=== PATIENT | female | born 1935 | race Caucasian/White ===

== ENCOUNTER 2016-05-09 16:51 | Inpatient (IN) | payer OTHER ==
--- NOTE | ~2016-05-09 | EGD ---
EGD REPORT [facility] [address] [address] NAME: YOAN COX : 37 STATUS : ADM IN PAT#: [id number] AGE: 81 ADM/REG DATE : 05/09/16 MR#: [id number] REPORT SERV DATE: 05/11/16 DICTATED BY: QUINN MILLS DATE: 05/11/16 REPORT STATUS : Draft [facility]ANSCRIBED BY: [facility] DATE: 05/11/16 Endoscopy Center Patient Name: Yoan Cox Date of : 1935 Attending MD: QUINN MILLS MD Procedure Date No Time: 05/11/2016 Procedure: Upper GI endoscopy Indications: Iron deficiency anemia secondary to chronic blood loss, Melena Referring MD: SEAN ACOSTA MD Medicines: Monitored Anesthesia Care Complications: No immediate complications. Estimated blood loss: Minimal. Procedure: Pre-Anesthesia Assessment: - ASA Grade Assessment: III - A patient with severe systemic disease. After obtaining informed consent, the endoscope was passed under direct vision. Throughout the procedure, the patient's blood pressure, pulse, and oxygen saturations were monitored continuously. The GIF [id number] was introduced through the mouth, and advanced to the third part of duodenum. The upper GI endoscopy was accomplished without difficulty. The patient tolerated the procedure well. Findings: The examined esophagus was normal. A single medium-sized angioectasia with no bleeding was found in the gastric antrum. Fulguration to ablate the lesion to prevent bleeding by argon plasma at 1 liter/minute and 30 winkler was successful. Estimated blood loss was minimal. The examined duodenum was normal. The cardia and gastric fundus were normal on retroflexion. The exam was otherwise without abnormality. Impression: - A single non-bleeding angioectasia in the stomach. Treated by fulguration. - The examination was otherwise normal. Recommendation: - Return patient to hospital ceja for ongoing care. - Use Protonix (pantoprazole) 40 mg PO BID for 4 weeks. - Clear liquid diet today. - Colonoscopy tomorrow - Check hemoglobin q 12 hours until stable. EGD REPORT [facility] [address] [facility] [place]. [address] NAME: YOAN COX : [birth year] STATUS : ADM IN [facility]#: [id number] AGE: 81 ADM/REG DATE : 05/09/16 MR#: [id number] REPORT SERV DATE: 05/11/16 DICTATED BY: QUINN MILLS DATE: 05/11/16 REPORT STATUS : Draft TRANSCRIBED BY: [employer] DATE: 05/11/16 Procedure Code(s): --- Professional --- 40076, Esophagogastroduodenoscopy, flexible, transoral; with control of bleeding, any method Diagnosis Code(s): --- Professional --- K31.819, Angiodysplasia of stomach and duodenum without bleeding D50.0, Iron deficiency anemia secondary to blood loss (chronic) K92.1, Melena CPT copyright 2013 [employer]. All rights reserved. The codes documented in this report are preliminary and upon computer language coder review may be revised to meet current compliance requirements. Quinn Mills MD QUINN MILLS MD 05/11/2016 8:07 AM This report has been signed electronically. Number of Addenda: 0 Note Initiated On: 05/11/2016 7:18 AM Scope Withdrawal Time 0 hours 0 minutes 0 seconds [address] [place] [address]
--- NOTE | ~2016-05-09 | CN ---
Consultation Report [facility] [address] [place] [place]. [address] NAME: YOAN COX : 37 STATUS : ADM IN PAT#: [id number] AGE: 81 ADM/REG DATE : 05/09/16 MR#: [id number] REPORT SERV DATE: 05/10/16 DICTATED BY: YOLI JIMENEZ DATE: 05/10/16 REPORT STATUS : Draft TRANSCRIBED BY: MODL DATE: 05/10/16 GI CONSULTATION DATE OF CONSULTATION: 05/10/2016 REASON FOR CONSULTATION: Evaluation and management of GI bleeding. HISTORY OF PRESENT ILLNESS: Ms. Cox is an 81-year-old female patient, who has been seen by Dr. Augustin in the past, who presented to on 05/09 with a chief complaint of weakness and low hemoglobin found at her primary care physician's office. She states that she has been not feeling well really since 11/2015 when she was having issues with orthostatic hypotension and was placed on midodrine. She states that in 01/2016, she was diagnosed with paroxysmal atrial fibrillation and was placed on Eliquis. Since that time, she tells me that she has been seeing black stools typically one to two per day. She has continued to have issues with lightheadedness and weakness upon standing. She went to see her primary care physician, Dr. Garcia, yesterday, who sent her for lab work. Her hemoglobin came back at 5.9, thus she was subsequently sent to for further evaluation. It should be noted that she had a hemoglobin on 01/18/2016 of 12.2. She came in and had a CT scan with contrast showing large retained fecal material in the right side of the colon through the level of the splenic flexure, equaling fecal stasis, as well as a small hiatal hernia. She has presently received two units of packed red blood cells. Her last hemoglobin check was at 6.8. She is due for a repeat within the next hour. She has been started on a Protonix drip. Her last EGD and colonoscopy was with Dr. Augustin on 07/29/2013. On the colonoscopy, she had internal hemorrhoids and the sigmoid colon polyps. EGD showed a mild Schatzki ring, which he dilated; GE junction with erythema and a hiatal hernia; normal duodenum and second part of the duodenum; he did take biopsies of the GE junction, which were benign. She states that she has not had a bowel movement since 05/07. I have discussed with her CT scan findings as well as plans for EGD on 05/11. Her last dose of Eliquis was on 05/09. We will need to allow 48 hours for the Eliquis to clear her system, and then we will pursue EGD in the morning. I did discuss the risks, benefits, alternatives, and complications with her to include, but not limited to risk of bleeding, perforation, infection, reaction to medication, as well as cardiac and pulmonary side effects. She gives permission to proceed. PAST MEDICAL HISTORY: Positive for hiatal hernia; colon polyps; internal hemorrhoids; Schatzki ring with dilation in the past; gastritis; coronary artery disease, status post CABG, pacer/AICD placement; diabetes type 2; orthostatic hypotension, on a regimen of midodrine; left bundle-branch block; hypertension in the past; carotid disease; atrial flutter/fibrillation; systolic CHF with her last calculated ejection fraction 35%; hypothyroidism after thyroidectomy; primary hyperparathyroidism with parathyroid adenoma, status post surgical resection. PAST SURGICAL HISTORY: CABG, pacer, thyroidectomy for goiter, parathyroid adenoma removal, hysterectomy, appendectomy, mucinous ovarian tumor removal. Consultation Report [address] [address] NAME: YOAN COX : 37 STATUS : ADM IN [facility]#: [id number] AGE: 81 ADM/REG DATE : 05/09/16 MR#: [id number] REPORT SERV DATE: 05/10/16 DICTATED BY: YOLI JIMENEZ DATE: 05/10/16 REPORT STATUS : Draft TRANSCRIBED BY: [employer] DATE: 05/10/16 SOCIAL HISTORY: Past tobacco. No alcohol. . Lives independently with her . She has three children, who live locally. She denies any illicit drugs. FAMILY HISTORY: Positive for pancreatic cancer in her mother. Father positive for stomach cancer. ALLERGIES: SHELLFISH, CODEINE, COREG, LORA INHIBITORS. HOME MEDICATIONS: Amiodarone, Eliquis, Refresh, aspirin, vitamin D3, levothyroxine, midodrine, nitroglycerin, and Zocor. REVIEW OF SYSTEMS: A 10-point review of systems has been obtained with pertinent positives being addressed in the history of present illness. PERTINENT LABORATORY DATA: Sodium is 139, potassium is 4.5, BUN is 12, creatinine is 1.54. White count 8.3, hemoglobin presently 6.8 with hematocrit of 22.3, platelet count 237. INR of 1.8. PHYSICAL EXAMINATION: VITAL SIGNS: Temperature 97.6, pulse 64, respirations 18, and blood pressure is 166/73. NEURO: Reveals an alert female, resting in bed, who is awake and oriented x3. No obvious focal deficits. GENERAL: She is cooperative. She is pleasant. No apparent distress is noted. HEAD, EARS, EYES, NOSE, AND THROAT: Anicteric. Pupils equal, round, reactive to light and accommodation. Normocephalic and atraumatic. Noted pallor of the sclerae. NECK: No JVD. No palpable nodes. LUNGS: Decreased throughout with normal respiratory effort exhibited. Equal expansion. CARDIOVASCULAR SYSTEM: Regular rate and rhythm. ABDOMEN: Soft and nontender with active bowel sounds. No organomegaly appreciated. Nondistended. No rebound or guarding elicited on exam. EXTREMITIES: No edema. Normal distal pulses. She has some bilateral upper extremity ecchymosis and bruising. SKIN: Warm, dry, and intact. PSYCHIATRIC: Normal mood. Normal affect. ASSESSMENT: 1. GI bleed with melena. She states that she has been seeing black stools since 01/2016 after initiation of Eliquis. Differential diagnosis includes peptic ulcer disease, gastritis, esophagitis, duodenitis, or neoplasm. 2. Acute blood loss anemia, undergoing transfusion. 3. Paroxysmal atrial fibrillation, Eliquis initiation in 01/2016, last dose was 05/09/2016 at 7 a.m. 4. Orthostatic hypotension, on a regimen of midodrine. Consultation Report [address] [place]. [address] NAME: YOAN COX : 37 STATUS : ADM IN [facility]#: [id number] AGE: 81 ADM/REG DATE : 05/09/16 MR#: [id number] REPORT SERV DATE: 05/10/16 DICTATED BY: YOLI JIMENEZ DATE: 05/10/16 REPORT STATUS : Draft TRANSCRIBED BY: MODL DATE: 05/10/16 5. Chronic systolic congestive heart failure, last ejection fraction of 35%. 6. Fecal stasis. PLAN: 1. Clear liquid diet and n.p.o. after midnight. 2. Allow 48 hours for Eliquis to clear the system, we will plan for EGD on 05/[address] Dunn. 3. Continue Protonix drip. 4. Follow H and H, transfuse as needed. 5. Check a TSH and begin MiraLax p.o. b.i.d. for constipation. We will follow. ANGELINE/TOMASZ Startex JAMES Negrete / [id number] CC: MD Toribio Mixon M.D.
--- NOTE | ~2016-05-09 | HP ---
History And Physical [facility] [place] [address] [place]. [address] NAME: YOAN DAVIS : 37 STATUS : ADM IN [facility]#: [id number] AGE: 81 ADM/REG DATE : 05/09/16 MR#: [id number] REPORT SERV DATE: 05/10/16 DICTATED BY: TAMIOK CRUZ DATE: 05/10/16 REPORT STATUS : Draft TRANSCRIBED BY: MODL DATE: 05/10/16 DATE OF ADMISSION: 05/09/2016 CHIEF COMPLAINT: An 81-year-old female presenting with weakness and evidence of acute blood loss anemia and GI bleed. HISTORY OF PRESENT ILLNESS: The patient's history was obtained through careful interview with the patient, coupled with review of [facility] and [facility] medical records. The patient first began to develop weakness back in November 2015, at that time was diagnosed with orthostatic hypotension, had to be taken off blood pressure medications and placed on midodrine instead. Then in January 2016, she was subsequently diagnosed with new onset paroxysmal atrial fibrillation as well and had to be placed on amiodarone followed by Dr. Mendez. She states that despite treatment for these two conditions she continues to have almost daily symptoms of lightheadedness, orthostasis, and occasional palpitations. But in late March 2016, her intermittent low blood pressure symptoms seemed to increase substantially and become more progressive. Over the last week, she has actually had lightheadedness associated with jerking spells. She went to see her primary care physician today, Dr. Toribio Garcia, and was sent for laboratory work and when the hemoglobin came back and resulted as extremely low, she was redirected to the emergency department. The patient has noticed dark even black colored stools at times over the last few weeks. No bright red blood per rectum. She has chronic shortness of breath characterized by dyspnea on exertion. No worsened by this illness. No nausea or vomiting. No palpitations today. She describes right middle quadrant abdominal pain, a cramping "gassy" quality pain, 8/10 severity that comes and goes. REVIEW OF SYSTEMS: Otherwise, a 14-point review of systems was obtained and was negative. PAST MEDICAL HISTORY: 1. Coronary artery disease status post CABG. 2. Pacer/AICD placement for prophylactic reasons. 3. Diabetes, hemoglobin A1c reported around 6.0. History And Physical [place] [address] [place]. [address] NAME: YOAN DAVIS : 37 STATUS : ADM IN [facility]#: [id number] AGE: 81 ADM/REG DATE : 05/09/16 MR#: [id number] REPORT SERV DATE: 05/10/16 DICTATED BY: TAMIKO CRUZ DATE: 05/10/16 REPORT STATUS : Draft TRANSCRIBED BY: TOMASZ DATE: 05/10/16 4. Orthostatic hypotension, on midodrine. 5. Left bundle-branch block. 6. Hypertension. 7. Carotid disease. 8. Atrial flutter/atrial fibrillation. 9. Systolic congestive heart failure. Ejection fraction 35%. Follow up with Dr. Mendez. 10.Iatrogenic hypothyroidism after thyroidectomy. 11.Primary hyperparathyroidism with parathyroid adenoma status post surgical resection. 12.Colon polyps seen by Dr. Augustin. 13.Hiatal hernia and a Schatzki's ring. PAST SURGICAL HISTORY: 1. CABG in 2002. 2. Pacer/AICD placement. 3. Thyroidectomy for goiter. 4. Parathyroid adenoma removal. 5. Hysterectomy. 6. Appendectomy. 7. Mucinous ovarian tumor in 2007. ALLERGIES: TO SHELLFISH, CODEINE, COREG, AND AN LORA INHIBITOR THAT CAUSES COUGH. SOCIAL HISTORY: Quit smoking in 2002. No alcohol abuse. She is . Her is a lung cancer survivor. She has three children, all sons, who live locally, and seven grandchildren. FAMILY HISTORY: Significant for heart disease. Also mother with pancreatic cancer. Father with stomach cancer. She is an only child. CURRENT MEDICATIONS: 1. Amiodarone 200 mg p.o. daily. 2. Eliquis 5 mg p.o. b.i.d. 3. Eye drops. 4. Aspirin 81 mg daily. 5. Vitamin D. 6. Levothyroxine 75 mcg p.o. daily. 7. Midodrine 10 mg p.o. b.i.d. 8. Nitroglycerin p.r.n. 9. Zocor 20 mg p.o. daily. PHYSICAL EXAMINATION: VITAL SIGNS: Temperature 98.8, pulse 80, blood pressure 105/52, respiratory rate 16, and O2 saturation 100% on room air. GENERAL: A pleasant cooperative female in no evidence of acute distress at this time. HEENT: Pupils are equal, round, and reactive to light. The patient has significant conjunctival pallor, but no scleral icterus. Nares are patent. Oropharynx is clear of obstruction. Moist mucous membranes. No intraoral lesions. History And Physical [address] [place]. [address] NAME: YOAN DAVIS : 37 STATUS : ADM IN PAT#: [id number] AGE: 81 ADM/REG DATE : 05/09/16 MR#: [id number] REPORT SERV DATE: 05/10/16 DICTATED BY: TAMIKO CRUZ DATE: 05/10/16 REPORT STATUS : Draft TRANSCRIBED BY: MODVivi DATE: 05/10/16 NECK: Trachea midline. No thyromegaly. LYMPH: No cervical lymphadenopathy. No supraclavicular lymphadenopathy. No inguinal lymphadenopathy. RESPIRATORY: Clear to auscultation at bases. No wheezes, rales, or rhonchi. Normal respiratory effort. CARDIOVASCULAR: Regular rate and rhythm. Paced on the monitor. No murmurs, rubs, or gallops. No extremity edema is appreciated. ABDOMEN: Soft, nontender, and nondistended. Normal bowel sounds auscultated throughout. No hepatosplenomegaly. DERMATOLOGICAL: Warm and dry extremities. There is peripheral pallor. No cyanosis. PSYCHIATRIC: Normal affect. Good mood. Alert and oriented x3. LABORATORY DATA: White blood cell count 8.3, hemoglobin 5.7, hematocrit 18.9 from baseline hematocrit of 35, and platelets 237. Sodium 139, potassium 4.5, chloride 107, bicarb 23, BUN 12, creatinine 1.54, and glucose 106. INR 1.8. Liver enzymes within normal limits. STUDIES: 1. EKG by my own evaluation shows atrial ventricular pacing. 2. CT scan of the abdomen is pending at the time of dictation. ASSESSMENT AND PLAN: 1. Acute blood loss anemia with baseline hematocrit of about 35% now dropped to hematocrit of 19%. We will transfuse blood and monitor closely. 2. Gastrointestinal bleed, suspect upper source as the patient reports melena. We will place on IV proton pump inhibitor drip. Consult Dr. Augustin, bobbin presser, and hold Eliquis. 3. Paroxysmal atrial fibrillation. Holding Eliquis secondary to gastrointestinal bleed. Check telemetry. 4. Chronic systolic congestive heart failure. Monitor volume status closely. 5. Chronic orthostatic hypotension. Continue midodrine. KPL/MODL Tamiko Cruz M.D. / [id number] CC: History And Physical [address] [address] NAME: YOAN DAVIS : 37 STATUS : ADM IN [facility]#: [id number] AGE: 81 ADM/REG DATE : 05/09/16 MR#: [id number] REPORT SERV DATE: 05/10/16 DICTATED BY: TAMIKO CRUZ DATE: 05/10/16 REPORT STATUS : Draft TRANSCRIBED BY: TOMASZ DATE: 05/10/16 MD Toribio Mixon M.D. James Scott Manton, M.D. William Warren, M.D.
--- NOTE | ~2016-05-09 | DS ---
Discharge Summary [facility] [address] [place]. 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 HISTORY OF PRESENT ILLNESS: Please see Dr. Kaur's dictation on 05/09/2016. HOSPITAL COURSE: Admitted with severe anemia with a hemoglobin of 5 with melena over the last three months since initiating Eliquis therapy for atrial fibrillation. The patient was transfused. She received an EGD, which revealed gastric AVM. Colonoscopy was negative. The patient also received intravenous iron due to a ferritin of 4 with an iron saturation of 5%. She was felt to have met the maximum benefit of hospitalization by 05/12/2016. She was tolerating her diet well. She was held off the Eliquis until followup with Dr. Mendez in a week to allow for healing of the gastric AVM, electrocautery, and reassessment of blood counts following iron infusion. She will follow up with Dr. Toribio Garcia also at this time for hematocrit and hemoglobin levels and possible further iron infusions in the future. Eliquis was in fact recommended long-term, but assurances of no further bleeding were recommended prior to doing so. In addition, the patient was not found to be severely orthostatically hypotensive. This was felt likely to be due to hypovolemia and/or anemia. She did have a drop of 15-20 points without symptoms, which was more consistent with age- related changes or anything else. She was recommended to take thigh-high Rom stockings, but no longer take midodrine. Low doses of carvedilol and lisinopril were initiated instead as her baseline blood pressures were high both in supine and in standing form. She was held off aspirin and Eliquis as mentioned. She will continue Protonix b.i.d. and Lipitor 10 at bedtime. She will follow up as an outpatient in 6-8 weeks. JUAN/TOMASZ Giovanny Norman M.D. / [id number] CC: Luisito Rowe M.D. William Warren, M.D.
--- NOTE | ~2016-05-09 | EGD ---
EGD REPORT [facility] [address] [address] NAME: YOAN COX : 37 STATUS : ADM IN PAT#: [id number] AGE: 81 ADM/REG DATE : 05/09/16 MR#: [id number] REPORT SERV DATE: 05/12/16 DICTATED BY: QUINN MILLS DATE: 05/12/16 REPORT STATUS : Draft [facility]ED [facility]: [facility] DATE: 05/12/16 Endoscopy Center Patient Name: Yoan Cox Date of : 1935 Attending MD: QUINN MILLS MD Procedure Date No Time: 05/12/2016 Procedure: Colonoscopy Indications: Melena Referring MD: SEAN ACOSTA MD Medicines: Monitored Anesthesia Care Complications: No immediate complications. Estimated blood loss: None. Procedure: Pre-Anesthesia Assessment: - ASA Grade Assessment: III - A patient with severe systemic disease. After I obtained informed consent, the scope was passed under direct vision. Throughout the procedure, the patient's blood pressure, pulse, and oxygen saturations were monitored continuously. The CF [id number] was introduced through the anus and advanced to the cecum, identified by appendiceal orifice and ileocecal valve. The colonoscopy was technically difficult and complex due to unsatisfactory bowel prep. The patient tolerated the procedure well. The quality of the bowel preparation was poor. Findings: The perianal exam was abnormal. Findings include non-thrombosed external hemorrhoids. Copious quantities of semi-liquid stool was found in the entire colon, interfering with visualization. Lavage of the area was performed using a large amount of sterile water, resulting in incomplete clearance with fair visualization. Non-bleeding internal hemorrhoids were found during retroflexion and were medium-sized. The exam was otherwise without abnormality. Impression: - Preparation of the colon was poor. - Non-thrombosed external hemorrhoids found on perianal exam. - Stool in the entire examined colon. - Non-bleeding internal hemorrhoids. - The examination was otherwise normal. - The exam was suboptimal due to patient preparation. - A bleeding source was not identified. The bleeding had stopped spontaneously. No suggestion of continued EGD REPORT [address] [place]. [address] NAME: YOAN COX : 37 STATUS : ADM IN [facility]#: [id number] AGE: 81 ADM/REG DATE : 05/09/16 MR#: [id number] REPORT SERV DATE: 05/12/16 DICTATED BY: QUINN MILLS DATE: 05/12/16 REPORT STATUS : Draft TRANSCRIBED BY: [facility] DATE: 05/12/16 bleeding with only brown stool seen. Recommendation: - Return patient to hospital ceja for ongoing care. - Soft diet. - OK to restart Eliquis/ASA - Return to GI clinic in 4 weeks, sooner if repeat bleeding is seen. - Consider repeat endoscopy and pillcam if there is repeat bleeding in the future Procedure Code(s): --- Professional --- 17158, Colonoscopy, flexible, proximal to splenic flexure; diagnostic, with or without collection of specimen(s) by brushing or washing, with or without colon decompression (separate procedure) Diagnosis Code(s): --- Professional --- K64.4, Residual hemorrhoidal skin tags K64.8, Other hemorrhoids K92.2, Gastrointestinal hemorrhage, unspecified K92.1, Melena CPT copyright 2013 [employer]. All rights reserved. The codes documented in this report are preliminary and upon battery loader review may be revised to meet current compliance requirements. Quinn Mills MD QUINN MILLS MD 05/12/2016 7:55 AM This report has been signed electronically. Number of Addenda: 0 Note Initiated On: 05/12/2016 7:00 AM Scope Withdrawal Time 0 hours 9 minutes 12 seconds [address] [place] [address]
[2016-05-09 12:00] LABS: HEMATOCRIT 19.8 % (36.0-48.0)
[2016-05-09 12:02] LABS: BUN (BLOOD UREA NITROGEN) 12 MG/DL (6-23); CALCIUM, SERUM 9.8 MG/DL (8.5-10.4); CHLORIDE, SERUM 106 MMOL/L (96-112); CO2 (CARBON DIOXIDE) 24 MMOL/L (24-34); CREATININE 1.44 MG/DL (0.55-1.02); GFR AFRICAN AMERICAN 40 ML/MIN (>=60); GFR NON AFRICAN AMERICAN 34 ML/MIN (>=60); GLUCOSE, SERUM 109 MG/DL (60-99); POTASSIUM, SERUM 4.5 MMOL/L (3.5-5.3); SODIUM, SERUM 139 MMOL/L (135-148)
[2016-05-09 12:03] LABS: HEMOGLOBIN 5.9 g/dL (12.0-16.0)
[2016-05-09 13:50] LABS: BASOPHILS 0.5 %; BASOPHILS ABSOLUTE 0.04 10/3/uL (0.0-0.16); EOSINOPHILS 0.8 %; EOSINOPHILS ABSOLUTE 0.07 10/3/uL (0.0-0.53); IMMATURE GRANULOCYTES 0.2 %; IMMATURE GRANULOCYTES ABSOLUTE 0.02 10/3/uL (0.0-0.11); LYMPHOCYTES 17.9 %; LYMPHOCYTES ABSOLUTE 1.49 10/3/uL (0.67-4.30); MEAN PLATELET VOLUME 8.5 fL (9.2-13.0); MONOCYTES 6.9 %; MONOCYTES ABSOLUTE 0.57 10/3/uL (0.21-1.20); NEUTROPHILS 73.7 %; NEUTROPHILS ABSOLUTE 6.12 10/3/uL (2.02-8.40); PLATELET COUNT 237 10/3/uL (150-400); WHITE BLOOD CELLS 8.3 10/3/uL (4.5-10.5)
[2016-05-09 13:52] LABS: HEMOGLOBIN 5.7 g/dL (12.0-16.0); RED CELL COUNT 2.27 10/6/uL (4.0-5.6)
[2016-05-09 13:53] LABS: HEMATOCRIT 18.9 % (36.0-48.0); MANUAL DIFF NO %; MEAN CORPUS HGB CONC 30.2 g/dL (32.0-36.0); MEAN CORPUSCULAR HEMOGLOB 25.1 pg (26.0-34.0); MEAN CORPUSCULAR VOLUME 83.3 fL (80-100); RBC DISTRIBUTION WIDTH 17.7 % (12.0-16.0)
[2016-05-09 13:57] LABS: INTERNATIONAL NORMAL RATI 1.8 UNITS (-); PARTIAL THROMBO TIME 40.9 SEC (22.5-37.2)
[2016-05-09 13:59] LABS: PROTIME (NOT ORD) 20.5 SEC (12.0-14.5)
[2016-05-09 14:05] LABS: A/G RATIO 1.3 (0.7-1.9); ALKALINE PHOSPHATASE 68 U/L (45-117); BUN (BLOOD UREA NITROGEN) 12 MG/DL (6-23); CALCIUM, SERUM 9.5 MG/DL (8.5-10.4); CHLORIDE, SERUM 107 MMOL/L (96-112); CO2 (CARBON DIOXIDE) 23 MMOL/L (24-34); CREATININE 1.54 MG/DL (0.55-1.02); GFR AFRICAN AMERICAN 37 ML/MIN (>=60); GFR NON AFRICAN AMERICAN 32 ML/MIN (>=60); GLOBULIN 3.1 G/DL (2.5-4.1); GLUCOSE, SERUM 106 MG/DL (60-99); POTASSIUM, SERUM 4.5 MMOL/L (3.5-5.3); SGOT(AST) 13 U/L (5-40); SGPT(ALT) 12 U/L (5-65); SODIUM, SERUM 139 MMOL/L (135-148); TOTAL BILIRUBIN 0.6 MG/DL (0-1.2); TOTAL PROTEIN 7.1 G/DL (6.0-8.5)
[~2016-05-09 16:51] MED LIST: ASAB PO; ASPIRIN PO; CALCIUM 600 MG PO; CALTRA600D PO; COQ10100 MG OR; CORDARONE PO; ELIQUIS 5 MG TAB5 MG PO; FISH OIL1200 MG PO; GLUCPH PO; HALF81 PO; IBU400 PO; L40 PO; LEVOTHYROXIN100 MCG PO; LIPITOR40 PO; LOP25 PO; MOTRIN IB200 MG PO; NITROSTAT0.4 MG SL; NORCO1 TA1 PO; PROAMAT5 PO; SPIRO25 PO; SYN.05 PO; TAPAZOLE5 MG PO; TEARS PURE OPH; TOPXL25 PO; VITAMIN D31000 UNIT PO; ZOCOR40 PO
[2016-05-09] MEDS ORDERED: ELIQUIS 5 MG TAB5 MG PO (18:42)
[2016-05-09] MEDS ORDERED: ASAB PO (18:43)
[2016-05-09] MEDS ORDERED: CORDARONE PO (18:43)
[2016-05-09] MEDS ORDERED: MIDODRINE10 MG PO (18:44)
[2016-05-09] MEDS ORDERED: LEVOTHYROXIN75 MCG PO (18:45)
[2016-05-09] MEDS ORDERED: ZOCOR20 PO (18:46)
[2016-05-09] MEDS ORDERED: NITROSTAT0.4 MG SL (18:46)
[2016-05-09] MEDS ORDERED: VITAMIN D31000 UNIT PO (18:47)
[2016-05-09] MEDS ORDERED: REFRESH OPH (18:48)
[2016-05-09 22:17] LABS: HEMATOCRIT 22.3 % (36.0-48.0); HEMOGLOBIN 6.8 g/dL (12.0-16.0)
[2016-05-10 08:52] LABS: BASOPHILS 0.5 %; BASOPHILS ABSOLUTE 0.03 10/3/uL (0.0-0.16); EOSINOPHILS 2.4 %; EOSINOPHILS ABSOLUTE 0.15 10/3/uL (0.0-0.53); IMMATURE GRANULOCYTES 0.3 %; IMMATURE GRANULOCYTES ABSOLUTE 0.02 10/3/uL (0.0-0.11); LYMPHOCYTES 21.6 %; LYMPHOCYTES ABSOLUTE 1.33 10/3/uL (0.67-4.30); MEAN CORPUS HGB CONC 31.4 g/dL (32.0-36.0); MEAN CORPUSCULAR HEMOGLOB 26.1 pg (26.0-34.0); MEAN CORPUSCULAR VOLUME 83.1 fL (80-100); MONOCYTES 9.6 %; MONOCYTES ABSOLUTE 0.59 10/3/uL (0.21-1.20); NEUTROPHILS 65.6 %; NEUTROPHILS ABSOLUTE 4.04 10/3/uL (2.02-8.40); PLATELET COUNT 236 10/3/uL (150-400); RBC DISTRIBUTION WIDTH 16.6 % (12.0-16.0); WHITE BLOOD CELLS 6.2 10/3/uL (4.5-10.5)
[2016-05-10 08:53] LABS: HEMATOCRIT 26.1 % (36.0-48.0); HEMOGLOBIN 8.2 g/dL (12.0-16.0); MANUAL DIFF NO %; RED CELL COUNT 3.14 10/6/uL (4.0-5.6)
[2016-05-10 08:59] LABS: INTERNATIONAL NORMAL RATI 1.4 UNITS (-); PARTIAL THROMBO TIME 35.7 SEC (22.5-37.2)
[2016-05-10 09:21] LABS: A/G RATIO 1.2 (0.7-1.9); ALBUMIN 3.7 G/DL (3.5-5.0); ALKALINE PHOSPHATASE 72 U/L (45-117); BUN (BLOOD UREA NITROGEN) 11 MG/DL (6-23); CALCIUM, SERUM 9.1 MG/DL (8.5-10.4); CHLORIDE, SERUM 110 MMOL/L (96-112); CO2 (CARBON DIOXIDE) 25 MMOL/L (24-34); CREATININE 1.34 MG/DL (0.55-1.02); GFR AFRICAN AMERICAN 43 ML/MIN (>=60); GFR NON AFRICAN AMERICAN 37 ML/MIN (>=60); GLUCOSE, SERUM 91 MG/DL (60-99); POTASSIUM, SERUM 4.4 MMOL/L (3.5-5.3); SGOT(AST) 15 U/L (5-40); SGPT(ALT) 13 U/L (5-65); SODIUM, SERUM 142 MMOL/L (135-148); TOTAL BILIRUBIN 0.9 MG/DL (0-1.2); TOTAL PROTEIN 6.7 G/DL (6.0-8.5); TROPONIN I 0.03 NG/ML (<0.05)
[2016-05-10 10:15] LABS: HEMATOCRIT 27.1 % (36.0-48.0); HEMOGLOBIN 8.6 g/dL (12.0-16.0)
[2016-05-10 16:16] LABS: HEMATOCRIT 24.8 % (36.0-48.0); HEMOGLOBIN 7.9 g/dL (12.0-16.0); RETICULOCYTE COUNT ABSOLUTE 90.3 10/3/uL (20.2-119.8)
[2016-05-10 16:32] LABS: % IRON SAT 4 % (20-50); FERRITIN 5 NG/ML (8-252); IRON BINDING CAPACITY 454 MCG/DL (225-410); IRON, SERUM 16 MCG/DL (35-150)
[2016-05-11 01:46] LABS: BASOPHILS 0.3 %; BASOPHILS ABSOLUTE 0.02 10/3/uL (0.0-0.16); EOSINOPHILS 4.4 %; EOSINOPHILS ABSOLUTE 0.28 10/3/uL (0.0-0.53); HEMOGLOBIN 9.2 g/dL (12.0-16.0); IMMATURE GRANULOCYTES 0.2 %; IMMATURE GRANULOCYTES ABSOLUTE 0.01 10/3/uL (0.0-0.11); LYMPHOCYTES ABSOLUTE 1.71 10/3/uL (0.67-4.30); MEAN CORPUS HGB CONC 31.6 g/dL (32.0-36.0); MEAN CORPUSCULAR HEMOGLOB 26.6 pg (26.0-34.0); MEAN CORPUSCULAR VOLUME 84.1 fL (80-100); MEAN PLATELET VOLUME 9.4 fL (9.2-13.0); MONOCYTES 10.9 %; MONOCYTES ABSOLUTE 0.69 10/3/uL (0.21-1.20); NEUTROPHILS 57.2 %; NEUTROPHILS ABSOLUTE 3.63 10/3/uL (2.02-8.40); PLATELET COUNT 227 10/3/uL (150-400); RBC DISTRIBUTION WIDTH 16.2 % (12.0-16.0); RED CELL COUNT 3.46 10/6/uL (4.0-5.6); WHITE BLOOD CELLS 6.3 10/3/uL (4.5-10.5)
[2016-05-11 01:47] LABS: HEMATOCRIT 29.1 % (36.0-48.0); MANUAL DIFF NO %
[2016-05-11 01:53] LABS: INTERNATIONAL NORMAL RATI 1.4 UNITS (-); PROTIME (NOT ORD) 16.6 SEC (12.0-14.5)
[2016-05-11 02:00] LABS: BUN (BLOOD UREA NITROGEN) 10 MG/DL (6-23); CALCIUM, SERUM 8.6 MG/DL (8.5-10.4); CHLORIDE, SERUM 110 MMOL/L (96-112); CO2 (CARBON DIOXIDE) 28 MMOL/L (24-34); CREATININE 1.31 MG/DL (0.55-1.02); GFR AFRICAN AMERICAN 44 ML/MIN (>=60); GFR NON AFRICAN AMERICAN 38 ML/MIN (>=60); GLUCOSE, SERUM 94 MG/DL (60-99); POTASSIUM, SERUM 4.7 MMOL/L (3.5-5.3); SODIUM, SERUM 145 MMOL/L (135-148)
[2016-05-12 06:27] LABS: BASOPHILS 0.5 %; BASOPHILS ABSOLUTE 0.04 10/3/uL (0.0-0.16); EOSINOPHILS ABSOLUTE 0.23 10/3/uL (0.0-0.53); HEMATOCRIT 27.9 % (36.0-48.0); HEMOGLOBIN 8.7 g/dL (12.0-16.0); IMMATURE GRANULOCYTES 0.3 %; IMMATURE GRANULOCYTES ABSOLUTE 0.02 10/3/uL (0.0-0.11); LYMPHOCYTES 13.3 %; LYMPHOCYTES ABSOLUTE 1.02 10/3/uL (0.67-4.30); MEAN CORPUS HGB CONC 31.2 g/dL (32.0-36.0); MEAN CORPUSCULAR HEMOGLOB 26.6 pg (26.0-34.0); MEAN CORPUSCULAR VOLUME 85.3 fL (80-100); MONOCYTES 9.9 %; MONOCYTES ABSOLUTE 0.76 10/3/uL (0.21-1.20); NEUTROPHILS ABSOLUTE 5.62 10/3/uL (2.02-8.40); PLATELET COUNT 202 10/3/uL (150-400); RBC DISTRIBUTION WIDTH 16.7 % (12.0-16.0); RED CELL COUNT 3.27 10/6/uL (4.0-5.6); WHITE BLOOD CELLS 7.7 10/3/uL (4.5-10.5)
[2016-05-12 06:34] LABS: MANUAL DIFF NO %
[2016-05-12 06:38] LABS: BUN (BLOOD UREA NITROGEN) 8 MG/DL (6-23); CALCIUM, SERUM 8.3 MG/DL (8.5-10.4); CHLORIDE, SERUM 108 MMOL/L (96-112); CO2 (CARBON DIOXIDE) 25 MMOL/L (24-34); CREATININE 1.27 MG/DL (0.55-1.02); GFR AFRICAN AMERICAN 46 ML/MIN (>=60); GFR NON AFRICAN AMERICAN 40 ML/MIN (>=60); GLUCOSE, SERUM 108 MG/DL (60-99); POTASSIUM, SERUM 4.1 MMOL/L (3.5-5.3); SODIUM, SERUM 142 MMOL/L (135-148)
[2016-05-12] MEDS ORDERED: MIRALAX POWDER1 PKT PO (16:05)
[2016-05-12] MEDS ORDERED: COREG3 PO (16:05)
[2016-05-12] MEDS ORDERED: PROTONIX PO (16:08)
[2016-05-12] MEDS ORDERED: PRIN2.5 PO (16:10)
[2016-10-19] MEDS ORDERED: VITAMIN D1000 UNI1 PO (13:41)
[2016-10-19] MEDS ORDERED: L20 PO (13:42)
[2016-10-19] MEDS ORDERED: PROTONIX PO (13:42)
[2016-10-19] MEDS ORDERED: ASAB PO (13:42)
[2016-10-19] MEDS ORDERED: SYN88 PO (13:43)
== END 2016-05-12 18:43 | disposition home or self-care (01) | DRG 378 ==
LOC: ER 16:51 → 7NO 19:27
PROVIDERS: Emergency Medicine; Hospitalist; Internal Medicine; Internal Medicine Cardiovascular Disease; Internal Medicine Gastroenterology; Nurse Practitioner Family
PROC: 30233N1 Transfusion of Nonautologous Red Blood Cells into Peripheral Vein, Percutaneous Approach (ICD-10-PCS; 2016-05-10)
PROC: 0D568ZZ Destruction of Stomach, Via Natural or Artificial Opening Endoscopic (ICD-10-PCS; principal; 2016-05-11 07:00)
PROC: 0DJD8ZZ Inspection of Lower Intestinal Tract, Via Natural or Artificial Opening Endoscopic (ICD-10-PCS; 2016-05-12)
DX: K31.811 Angiodysplasia of stomach and duodenum with bleeding (principal); D62 Acute posthemorrhagic anemia; I50.22 Chronic systolic (congestive) heart failure; I13.0 Hypertensive heart and chronic kidney disease with heart failure and stage 1 through stage 4 chronic kidney disease, or unspecified chronic kidney disease; I48.0 Paroxysmal atrial fibrillation; I95.1 Orthostatic hypotension; T45.525A Adverse effect of antithrombotic drugs, initial encounter; N18.9 Chronic kidney disease, unspecified; I25.5 Ischemic cardiomyopathy; I44.7 Left bundle-branch block, unspecified; I25.2 Old myocardial infarction; I25.10 Atherosclerotic heart disease of native coronary artery without angina pectoris; K59.00 Constipation, unspecified; K64.4 Residual hemorrhoidal skin tags; K64.8 Other hemorrhoids; Z95.1 Presence of aortocoronary bypass graft; Z95.810 Presence of automatic (implantable) cardiac defibrillator; Z87.891 Personal history of nicotine dependence
CPT/HCPCS: 36415; 36430; 71010; 74177; 80048; 80053; 82728; 83540; 83550; 83735; 83880; 84443; 84484; 85014; 85018; 85025; 85045; 85610; 85730; 86850; 86900; 86901; 86920; 93005; 99291; A9270-GY; C9113; G0463; J1750; P9016; Q9967